=== PATIENT | male | born 1950 | race African-American/Black ===

== ENCOUNTER 2017-07-16 00:13 | Emergency (ER) | payer MEDICARE, OTHER ==
[~2017-07-16] VITALS: Ht 175.3 cm; Wt 90.7 kg
[2017-07-16 00:13] VITALS: BP 134/91
--- NOTE | 2017-07-16 00:16 | NUR ---
PT MALCOLM MATA. TAKEN TO BED 12
--- NOTE | 2017-07-16 00:17 | NUR ---
PATIENT IS A 67 Y/O MALE BIB [facility] WHO PRESENTS TO THE ED C/O SOB. PT STATES, "I WAS DRIVING HOME AND I COULDN'T BREATHE." PT DENIES PAIN. PT REPORTS SOB, LUNG SOUNDS BILATERAL WHEEZES IN BASES. O2 SAT 98% ON 2L NC. NOTED BILATERAL 2+ PITTING EDEMA BILATERAL LEGS. CAP REFULL IMMEDIATE, FULL ROM ON LEFT LEG, LIMITED ON RIGHT LEG. PT AAOX4, RR EVEN/UNLABORED. PT REPOSITIONED FOR COMFORT, BED IN LOWEST POSITION. ER MD DR. FLANNERY NOTIFIED. WILL CONTINUE TO MONITOR.
--- NOTE | 2017-07-16 00:25 | NUR ---
DR. FLANNERY EVALUATING PATIENT AT BEDSIDE.
[2017-07-16 01:14] LABS: HEMATOCRIT 45.4 % (36-52); HEMOGLOBIN 14.3 g/dL (12.0-18.0); MEAN CORPUSCULAR HEMOGLOBIN 27 pg (27-31); MEAN CORPUSCULAR HGB CONC 32 g/dL (33-37); MEAN CORPUSCULAR VOLUME 86 fL (80-94); PLATELET COUNT (AUTO) 156 K/uL (140-450); RED BLOOD CELL COUNT(AUTO) 5.29 MIL/uL (4.20-6.10); RED CELL DISTRIBUTION WIDTH 19.7 % (11.6-13.7); WHITE BLOOD COUNT (AUTO) 5.5 K/uL (4.8-10.8)
[2017-07-16] MEDS ORDERED: ALBUTEROL SULFATE/IPRATROPIU 3 ML SOL IH ONE (01:15)
--- NOTE | 2017-07-16 01:18 | NUR ---
RT AT BEDSIDE.
[2017-07-16] MEDS ORDERED: FUROSEMIDE 40 MG/4 ML VIAL IVP ONE (01:25)
[2017-07-16 01:27] LABS: LYMPHOCYTES % (MANUAL) 11 % (20-46); MONOCYTES % (MANUAL) 11 % (5-12)
[2017-07-16 01:29] LABS: ALBUMIN 3.2 g/dL (3.4-5.0); ANION GAP 12.3 (8-16); CARBON DIOXIDE 31.1 mmol/L (21-32); CREATININE 1.7 mg/dL (0.7-1.3); POTASSIUM 3.4 mmol/L (3.5-5.1); TOTAL BILIRUBIN 2.3 mg/dL (0.0-1.0)
--- NOTE | 2017-07-16 01:30 | NUR ---
XRAY AT BEDSIDE.
[2017-07-16] MEDS ORDERED: ASPIRIN 81 MG TAB.CHEW PO ONE (02:10)
--- NOTE | 2017-07-16 02:15 | NUR ---
PATIENT RESTING COMFORTABLY AT THIS TIME. NO SIGNS OF DISTRESS.
--- NOTE | 2017-07-16 03:15 | NUR ---
PATIENT RESTING COMFORTABLY AT THIS TIME. NO SIGNS OF DISTRESS AT THIS TIME.
--- NOTE | 2017-07-16 04:00 | NUR ---
Patient to be transferred to [facility]. Is being transferred due to [employer]. Receiving facility has accepting physician and available space. ER physician has signed transfer form. Patient or responsible green party has agreed to transfer and signed form. Patient belongings inventoried and will be sent with patient. Copy of nursing notes, lab reports, EKG, Physicians Orders and X-rays to be sent with patient. Report called to JESSICA JONES at receiving facility. [facility] ambulance service has been called for transfer. ETA is 45MIN. Addendum: 07/16/17 at 0424 by [facility] Patient to be transferred to [facility]. Is being transferred due to HIG[employer] LEVEL OF CARE/[employer]. Receiving facility has accepting physician and available space. ER physician has signed transfer form. Patient or responsible green party has agreed to transfer and signed form. Patient belongings inventoried and will be sent with patient. Copy of nursing notes, lab reports, EKG, Physicians Orders and X-rays to be sent with patient. Report called to JESSICA JONES at receiving facility. [facility] ambulance service has been called for transfer. ETA is 20MIN.
--- NOTE | 2017-07-16 04:20 | NUR ---
[facility] ARRIVED FOR PT. PT TO BE TRANSFERRED AT THIS TIME.
[2017-07-16 04:22] VITALS: BP 140/95
--- NOTE | 2017-07-16 04:31 | NUR ---
PT TAKEN BY [facility] TO [facility] [address]
== END 2017-07-16 04:31 | disposition short-term general hospital (02) ==
LOC: EDBD 00:13 → MED 00:13
DX: I50.9 Heart failure, unspecified (principal); R79.89 Other specified abnormal findings of blood chemistry; J44.9 Chronic obstructive pulmonary disease, unspecified; I10 Essential (primary) hypertension; Z86.73 Personal history of transient ischemic attack (TIA), and cerebral infarction without residual deficits; Z95.0 Presence of cardiac pacemaker
CPT/HCPCS: 36415; 36600; 71010; 80053; 82803; 83690; 83880; 84484; 85025; 93005; 94640; 96374; 99285; J1940; J7620; Q0092